=== PATIENT | male | born 1940 | race Caucasian/White ===

== ENCOUNTER → 2017-10-10 | Outpatient (CLI) | payer MEDICARE, OTHER ==
[~2017-10-10] MED LIST: AMARYL1 M1 PO; ASPIRIN81 M1 PO; ATENOLOL25 MG PO; CAPTOPRIL12.5 MG PO; FISH OIL 10001000 MG PO; FLOMAX0.4 MG PO; LIPITOR20 MG PO; METFORMIN500 MG PO; OMEPRAZOLE20 MG PO; ULTRAM50 MG PO; VITAMIN B COMPL1 CAP PO; VOLTAREN50 M1 PO; ZOLPIDEM5 MG PO
== END | disposition home or self-care (01) ==
LOC: US 14:32
DX: I65.23 Occlusion and stenosis of bilateral carotid arteries (principal); H34.211 Partial retinal artery occlusion, right eye

== ENCOUNTER → 2017-11-19 | Outpatient (CLI) | payer MEDICARE, OTHER | END | disposition home or self-care (01) | LOC: CT 10:36 | DX: R93.8 Abnormal findings on diagnostic imaging of other specified body structures (principal) ==

== ENCOUNTER → 2019-02-24 | Outpatient (CLI) | payer MEDICARE, OTHER | END | disposition home or self-care (01) | LOC: CARD 10:08 | DX: I08.0 Rheumatic disorders of both mitral and aortic valves (principal); I25.10 Atherosclerotic heart disease of native coronary artery without angina pectoris ==

== ENCOUNTER → 2019-03-09 | Outpatient (CLI) | payer MEDICARE, OTHER ==
[2019-03-09 10:31] LABS: CREATININE 1.46 mg/dL (0.70-1.30); POTASSIUM 3.9 mmol/L (3.5-5.1)
[2019-03-09 10:37] LABS: THYROID STIM HORMONE (HS) 1.03 uIU/ml (0.358-4.75)
== END | disposition home or self-care (01) ==
LOC: LAB 09:42
PROVIDERS: Family Medicine
DX: E11.9 Type 2 diabetes mellitus without complications (principal); E78.2 Mixed hyperlipidemia

== ENCOUNTER → 2019-03-16 | Outpatient (CLI) | payer MEDICARE, OTHER | END | disposition home or self-care (01) | LOC: CT 10:26 | DX: R91.1 Solitary pulmonary nodule (principal); R05 Cough ==

== ENCOUNTER → 2019-12-07 | Outpatient (CLI) | payer MEDICARE, OTHER | END | disposition home or self-care (01) | LOC: CT 12-03 15:00 | DX: J43.9 Emphysema, unspecified (principal); R91.1 Solitary pulmonary nodule ==

== ENCOUNTER → 2020-03-09 | Outpatient (CLI) | payer MEDICARE, OTHER ==
[2020-03-09 10:17] LABS: BUN 20 mg/dl (7-24); CHOLESTEROL 114 mg/dL (<200); CREATININE 1.31 mg/dL (0.70-1.30); HDL CHOLESTEROL 68 mg/dl (40-60); LDL CHOLESTEROL 33 mg/dL (9-159); TRIGLYCERIDES 67 mg/dl (<150); VLDL CHOLESTEROL 13 mg/dL (6-40)
[2020-03-09 10:35] LABS: CHLORIDE 110 mmol/L (98-107); POTASSIUM 4.2 mmol/L (3.5-5.1); SODIUM 141 mmol/L (136-145)
== END | disposition home or self-care (01) ==
LOC: LAB 08:44
PROVIDERS: ATTEND Family Medicine
DX: E11.9 Type 2 diabetes mellitus without complications (principal); I25.10 Atherosclerotic heart disease of native coronary artery without angina pectoris; E78.2 Mixed hyperlipidemia

== ENCOUNTER → 2020-03-22 | Outpatient (CLI) | payer MEDICARE, OTHER | END | disposition home or self-care (01) | LOC: COVID19 00:32 | PROVIDERS: ATTEND Family Medicine | DX: Z20.828 Contact with and (suspected) exposure to other viral communicable diseases (principal); B34.9 Viral infection, unspecified ==

== ENCOUNTER → 2021-01-02 | Outpatient (CLI) | payer MEDICARE, OTHER ==
[2021-01-02 08:57] LABS: BUN 24 mg/dl (7-24); CHLORIDE 108 mmol/L (98-107); CHOLESTEROL 129 mg/dL (<200); CREATININE 1.27 mg/dL (0.70-1.30); POTASSIUM 3.7 mmol/L (3.5-5.1); SODIUM 136 mmol/L (136-145); TRIGLYCERIDES 88 mg/dl (<150)
[2021-01-02 09:07] LABS: LDL CHOLESTEROL 38 mg/dL (9-159); THYROID STIM HORMONE (HS) 0.737 uIU/ml (0.358-4.75)
== END | disposition home or self-care (01) ==
LOC: LAB 08:10
PROVIDERS: ATTEND Family Medicine
DX: E11.9 Type 2 diabetes mellitus without complications (principal); E78.2 Mixed hyperlipidemia; I25.10 Atherosclerotic heart disease of native coronary artery without angina pectoris

== ENCOUNTER → 2021-03-08 | Outpatient (CLI) | payer MEDICARE, OTHER | END | disposition home or self-care (01) | LOC: COVID19 16:00 | PROVIDERS: ATTEND Internal Medicine | DX: Z11.52 Encounter for screening for COVID-19 (principal) ==

== ENCOUNTER → 2021-03-28 | Outpatient (CLI) | payer MEDICARE, OTHER ==
[2021-03-28 09:06] LABS: BASO # 0.1 10*3/uL (0.0-0.1); EOS # 0.4 10*3/uL (0.0-0.4); EOS % 5.3 % (1.0-4.0); HEMATOCRIT 34.3 % (42.0-52.0); LYMPH # 2.4 10*3/uL (1.3-4.4); LYMPH % 32.8 % (27.0-41.0); MEAN CELL VOLUME 74.2 fl (80.0-94.0); MEAN CORPUSCULAR HGB 22.3 pg (27.0-31.0); MEAN PLATELET VOLUME 9.6 fl (9.6-12.3); MONO # 0.8 10*3/uL (0.1-1.0); MONO % 10.2 % (3.0-9.0); NEUT # 3.7 10*3/uL (2.3-7.9); NEUT % 50.4 % (47.0-73.0); PLATELET COUNT AUTOMATED 273 10*3/uL (130-400); RED BLOOD COUNT 4.62 10*6/uL (4.50-5.90); RED CELL DISTRI WIDTH 21.5 % (0-14.5); WHITE BLOOD COUNT 7.3 10*3/uL (4.8-10.8)
== END | disposition home or self-care (01) ==
LOC: LAB 08:54
PROVIDERS: ATTEND Family Medicine
DX: R53.83 Other fatigue (principal)

== ENCOUNTER → 2021-03-29 | Outpatient (CLI) | payer MEDICARE, OTHER ==
[2021-03-29 10:45] LABS: BASO # 0.1 10*3/uL (0.0-0.1); BASO % 1.1 % (0.0-1.0); EOS # 0.3 10*3/uL (0.0-0.4); EOS % 5.5 % (1.0-4.0); LYMPH # 1.5 10*3/uL (1.3-4.4); LYMPH % 27.1 % (27.0-41.0); MEAN CELL VOLUME 76.2 fl (80.0-94.0); MEAN CORPUSCULAR HGB 22.2 pg (27.0-31.0); MEAN CORPUSCULAR HGB CONC 29.1 g/dl (33.0-37.0); MEAN PLATELET VOLUME 9.2 fl (9.6-12.3); MONO # 0.6 10*3/uL (0.1-1.0); MONO % 11.3 % (3.0-9.0); NEUT % 54.6 % (47.0-73.0); PLATELET COUNT AUTOMATED 244 10*3/uL (130-400); RED BLOOD COUNT 4.46 10*6/uL (4.50-5.90); RED CELL DISTRI WIDTH 21.3 % (0-14.5); WHITE BLOOD COUNT 5.5 10*3/uL (4.8-10.8)
[2021-03-29 10:59] LABS: IRON 36 ug/dL (65-175); TOTAL IRON BINDING CAPACITY 384 ug/dl (250-450)
[2021-03-29 12:51] LABS: FERRITIN 11.4 ng/mL (22.0-322.0)
== END | disposition home or self-care (01) ==
LOC: LAB 10:24
PROVIDERS: ATTEND Family Medicine
DX: D50.9 Iron deficiency anemia, unspecified (principal)

== ENCOUNTER → 2021-06-20 | Outpatient (CLI) | payer MEDICARE, OTHER ==
[2021-06-20 11:47] LABS: HEMATOCRIT 41.5 % (42.0-52.0); MEAN CELL VOLUME 91.8 fl (80.0-94.0); MEAN CORPUSCULAR HGB 30.3 pg (27.0-31.0); MEAN PLATELET VOLUME 10.2 fl (9.6-12.3); NUCLEATED RED BLOOD CELL 0.4 % (0.0-0.0); RED BLOOD COUNT 4.52 10*6/uL (4.50-5.90); RED CELL DISTRI WIDTH 22.7 % (0-14.5); WHITE BLOOD COUNT 5.5 10*3/uL (4.8-10.8)
== END | disposition home or self-care (01) ==
LOC: LAB 11:10
PROVIDERS: ATTEND Nurse Practitioner Family
DX: K55.20 Angiodysplasia of colon without hemorrhage (principal); D50.9 Iron deficiency anemia, unspecified

== ENCOUNTER → 2021-08-23 | Outpatient (CLI) | payer MEDICARE, OTHER ==
[2021-08-23 08:51] LABS: HEMATOCRIT 40.1 % (42.0-52.0); MEAN CELL VOLUME 94.8 fl (80.0-94.0); MEAN CORPUSCULAR HGB 33.6 pg (27.0-31.0); MEAN CORPUSCULAR HGB CONC 35.4 g/dl (33.0-37.0); MEAN PLATELET VOLUME 10.5 fl (9.6-12.3); NUCLEATED RED BLOOD CELL 0.4 % (0.0-0.0); RED BLOOD COUNT 4.23 10*6/uL (4.50-5.90); RED CELL DISTRI WIDTH 14.4 % (0-14.5); WHITE BLOOD COUNT 5.6 10*3/uL (4.8-10.8)
[2021-08-23 09:14] LABS: IRON 195 ug/dL (65-175); TOTAL IRON BINDING CAPACITY 238 ug/dl (250-450)
== END | disposition home or self-care (01) ==
LOC: LAB 08:24
PROVIDERS: ATTEND Nurse Practitioner Family
DX: K55.20 Angiodysplasia of colon without hemorrhage (principal); D50.9 Iron deficiency anemia, unspecified

== ENCOUNTER → 2021-10-03 | Outpatient (CLI) | payer MEDICARE, OTHER ==
[2021-10-03 08:44] LABS: BUN 16 mg/dl (7-24); CHLORIDE 111 mmol/L (98-107); CHOLESTEROL 128 mg/dL (<200); CREATININE 1.32 mg/dL (0.70-1.30); SODIUM 140 mmol/L (136-145); TRIGLYCERIDES 90 mg/dl (<150)
[2021-10-03 08:46] LABS: LDL CHOLESTEROL 43 mg/dL (9-159)
== END | disposition home or self-care (01) ==
LOC: LAB 08:10
PROVIDERS: ATTEND Family Medicine
DX: E11.9 Type 2 diabetes mellitus without complications (principal)

== ENCOUNTER → 2021-11-15 | Outpatient (CLI) | payer MEDICARE, OTHER | LOC: RAD 09:49 | PROVIDERS: ATTEND Family Medicine | DX: R10.0 Acute abdomen (principal); M47.817 Spondylosis without myelopathy or radiculopathy, lumbosacral region ==

== ENCOUNTER 2022-03-19 18:29 | Emergency (ER) | payer MEDICARE, OTHER ==
[~2022-03-19] VITALS: Ht 167.6 cm; Wt 77.1 kg
[2022-03-19] MEDS ORDERED: BENZONATATE200 MG PO (21:22)
[2022-03-19] MEDS ORDERED: MEDROL DOSEPAK4 MG PO (21:22)
== END 2022-03-19 21:42 | disposition home or self-care (01) ==
LOC: ED 18:29
DX: R05.9 Cough, unspecified (principal); Z20.822 Contact with and (suspected) exposure to COVID-19; R50.9 Fever, unspecified; R09.81 Nasal congestion; Z88.2 Allergy status to sulfonamides; Z88.8 Allergy status to other drugs, medicaments and biological substances; Z79.899 Other long term (current) drug therapy; Z98.890 Other specified postprocedural states; Z90.89 Acquired absence of other organs; Z90.49 Acquired absence of other specified parts of digestive tract

== ENCOUNTER → 2022-04-05 | Outpatient (CLI) | payer MEDICARE, OTHER ==
[~2022-04-05] MED LIST changes: +BENZONATATE200 MG PO; +MEDROL DOSEPAK4 MG PO
[2022-04-05 09:01] LABS: BASO % 0.7 % (0.0-1.0); EOS # 0.2 10*3/uL (0.0-0.4); HEMATOCRIT 38.1 % (42.0-52.0); LYMPH # 1.7 10*3/uL (1.3-4.4); LYMPH % 30.6 % (27.0-41.0); MEAN CELL VOLUME 98.4 fl (80.0-94.0); MEAN CORPUSCULAR HGB 34.1 pg (27.0-31.0); MEAN CORPUSCULAR HGB CONC 34.6 g/dl (33.0-37.0); MONO # 0.5 10*3/uL (0.1-1.0); MONO % 8.7 % (3.0-9.0); NEUT # 3.2 10*3/uL (2.3-7.9); NEUT % 56.8 % (47.0-73.0); PLATELET COUNT AUTOMATED 165 10*3/uL (130-400); RED BLOOD COUNT 3.87 10*6/uL (4.50-5.90); RED CELL DISTRI WIDTH 14.7 % (0-14.5); WHITE BLOOD COUNT 5.7 10*3/uL (4.8-10.8)
[2022-04-05 09:19] LABS: BUN 18 mg/dl (7-24); CHLORIDE 110 mmol/L (98-107); CHOLESTEROL 98 mg/dL (<200); CREATININE 1.35 mg/dL (0.70-1.30); IRON 191 ug/dL (65-175); LDL CHOLESTEROL 22 mg/dL (9-159); SODIUM 140 mmol/L (136-145); TRIGLYCERIDES 79 mg/dl (<150)
== END | disposition home or self-care (01) ==
LOC: LAB 08:41
PROVIDERS: ATTEND Family Medicine
DX: E11.9 Type 2 diabetes mellitus without complications (principal); E78.2 Mixed hyperlipidemia; D50.0 Iron deficiency anemia secondary to blood loss (chronic)

== ENCOUNTER → 2022-10-31 | Outpatient (CLI) | payer MEDICARE, OTHER ==
[2022-10-31 08:56] LABS: BASO # 0.1 10*3/uL (0.0-0.1); BASO % 1.1 % (0.0-1.0); EOS # 0.3 10*3/uL (0.0-0.4); EOS % 4.6 % (1.0-4.0); HEMATOCRIT 39.9 % (42.0-52.0); LYMPH # 1.8 10*3/uL (1.3-4.4); MEAN CORPUSCULAR HGB CONC 33.3 g/dl (33.0-37.0); MEAN PLATELET VOLUME 10.8 fl (9.6-12.3); MONO # 0.5 10*3/uL (0.1-1.0); MONO % 9.1 % (3.0-9.0); NEUT # 2.8 10*3/uL (2.3-7.9); NUCLEATED RED BLOOD CELL 0.4 % (0.0-0.0); PLATELET COUNT AUTOMATED 162 10*3/uL (130-400); RED BLOOD COUNT 4.03 10*6/uL (4.50-5.90); RED CELL DISTRI WIDTH 14.2 % (0-14.5); WHITE BLOOD COUNT 5.4 10*3/uL (4.8-10.8)
[2022-10-31 09:38] LABS: ALKALINE PHOSPHATASE 71 U/L (46-116); BUN 15 mg/dl (9-23); CHLORIDE 104 mmol/L (98-107); CHOLESTEROL 108 mg/dL (<200); LDL CHOLESTEROL 37 mg/dL (9-159); SGPT/ALT 22 U/L (10-49); THYROID STIM HORMONE (HS) 1.582 uIU/ml (0.550-4.780); TOTAL PROTEIN 7.3 gm/dL (6.0-8.0); TRIGLYCERIDES 68 mg/dl (<150)
== END | disposition home or self-care (01) ==
LOC: LAB 08:05
PROVIDERS: ATTEND Family Medicine
DX: I25.10 Atherosclerotic heart disease of native coronary artery without angina pectoris (principal); E78.2 Mixed hyperlipidemia; E11.9 Type 2 diabetes mellitus without complications; I10 Essential (primary) hypertension; D50.9 Iron deficiency anemia, unspecified; J44.1 Chronic obstructive pulmonary disease with (acute) exacerbation

== ENCOUNTER → 2022-11-08 | Outpatient (CLI) | payer MEDICARE, OTHER ==
[2022-11-08 11:05] LABS: BILIRUBIN Negative (Negative); BLOOD Negative (Negative); CLARITY Clear (Clear); COLOR Yellow (Yellow); GLUCOSE Negative (Negative); KETONE Negative (Negative); LEUKO ESTERASE Negative (Negative); NITRITE Negative (Negative); PH 5.5 (4.5-8.0); UROBILINOGEN 0.2 E.U./dl (0.0-1.0)
[2022-11-08 11:18] LABS: BACTERIA TRACE; RBC 0-2 rbc/hpf (0-2); WBC 0-2 wbc/hpf (0-5)
== END | disposition home or self-care (01) ==
LOC: LAB 10:46
PROVIDERS: ATTEND Family Medicine
DX: N40.1 Benign prostatic hyperplasia with lower urinary tract symptoms (principal)

== ENCOUNTER → 2023-05-22 | Outpatient (CLI) | payer MEDICARE, OTHER ==
[~2023-05-22] MED LIST changes: +ATARAX,VISTARIL10 MG PO; +CHOLESTYRAMINE378 G1 PO; +VITAMIN D3125 MCG PO
== END | disposition home or self-care (01) ==
LOC: RAD 15:44
PROVIDERS: ATTEND Internal Medicine
DX: M48.061 Spinal stenosis, lumbar region without neurogenic claudication (principal); I70.0 Atherosclerosis of aorta

== ENCOUNTER → 2023-05-23 | Outpatient (CLI) | payer MEDICARE, OTHER | END | disposition home or self-care (01) | LOC: MRI 00:08 | PROVIDERS: ATTEND Internal Medicine | DX: M51.16 Intervertebral disc disorders with radiculopathy, lumbar region (principal); M51.86 Other intervertebral disc disorders, lumbar region ==

== ENCOUNTER → 2023-07-29 | Outpatient (CLI) | payer MEDICARE, OTHER ==
[2023-07-29 09:50] LABS: ALKALINE PHOSPHATASE 58 U/L (46-116); BUN 17 mg/dl (9-23); CHLORIDE 107 mmol/L (98-107); CHOLESTEROL 113 mg/dL (<200); LDL CHOLESTEROL 42 mg/dL (9-159); SGPT/ALT 29 U/L (5-49); TOTAL PROTEIN 7.3 gm/dL (6.0-8.0); TRIGLYCERIDES 70 mg/dl (<150)
== END | disposition home or self-care (01) ==
LOC: LAB 09:04
PROVIDERS: ATTEND Family Medicine
DX: E11.9 Type 2 diabetes mellitus without complications (principal); E78.2 Mixed hyperlipidemia; I25.10 Atherosclerotic heart disease of native coronary artery without angina pectoris

== ENCOUNTER → 2023-10-28 | Outpatient (CLI) | payer MEDICARE, OTHER ==
[~2023-10-28] MED LIST changes: +GADOTERATE MEGLUMINE 10 MMOL/20 ML VIAL IV ONE
== END | disposition home or self-care (01) ==
LOC: MRI 00:32
PROVIDERS: ATTEND Internal Medicine
DX: I63.89 Other cerebral infarction (principal); G93.9 Disorder of brain, unspecified

== ENCOUNTER → 2023-11-11 | Outpatient (CLI) | payer MEDICARE, OTHER ==
[~2023-11-11] MED LIST changes: +ARNUITY ELLIP200 MCG INH; +COMBIVENT RESPIM4 GM INH; -GADOTERATE MEGLUMINE 10 MMOL/20 ML VIAL IV ONE; +OMEPRAZOLE40 MG PO; +Regadenoson 0.4 MG/5 ML SYR IV ONE
== END | disposition home or self-care (01) ==
LOC: CARD 11-04 08:00
PROVIDERS: ATTEND Internal Medicine Cardiovascular Disease
DX: I25.9 Chronic ischemic heart disease, unspecified (principal); R94.31 Abnormal electrocardiogram [ECG] [EKG]; Z95.1 Presence of aortocoronary bypass graft

== ENCOUNTER → 2024-03-09 | Outpatient (CLI) | payer MEDICARE, OTHER ==
[~2024-03-09] MED LIST changes: -Regadenoson 0.4 MG/5 ML SYR IV ONE
== END | disposition home or self-care (01) ==
LOC: RAD 15:20
PROVIDERS: ATTEND Nurse Practitioner Family
DX: J44.9 Chronic obstructive pulmonary disease, unspecified (principal); J84.10 Pulmonary fibrosis, unspecified; R05.3 Chronic cough

== ENCOUNTER → 2024-03-17 | Outpatient (CLI) | payer MEDICARE, OTHER | END | disposition home or self-care (01) | LOC: CARD 07:08 | PROVIDERS: ATTEND Internal Medicine Cardiovascular Disease | DX: I25.10 Atherosclerotic heart disease of native coronary artery without angina pectoris (principal); R06.02 Shortness of breath ==

== ENCOUNTER → 2024-06-04 | Outpatient (CLI) | payer MEDICARE, OTHER | END | disposition home or self-care (01) | LOC: RAD 11:11 | PROVIDERS: ATTEND Internal Medicine | DX: M19.032 Primary osteoarthritis, left wrist (principal); M17.12 Unilateral primary osteoarthritis, left knee; M25.562 Pain in left knee; M25.532 Pain in left wrist; Z98.890 Other specified postprocedural states ==